=== PATIENT | male | born 2000 | race Two or more races ===

== ENCOUNTER 2025-06-24 20:55 | Emergency (ER) | payer OTHER, SELFPAY ==
[2025-06-24 21:02] VITALS: PULSE 130; O2SAT 100
--- NOTE | 2025-06-24 21:07 | ECG_ITS ---
Test Reason : TACHY Blood Pressure : */* mmHG Vent. Rate : 111 BPM Atrial Rate : 111 BPM P-R Int : 124 ms QRS Dur : 100 ms QT Int : 338 ms P-R-T Axes : 79 -16 49 degrees QTcB Int : 459 ms Sinus tachycardia Otherwise normal ECG No previous ECGs available Referred By: Generic ED Physician Electronically Signed By: LUKE JONES
[2025-06-24 21:09] VITALS: PULSE 106; RESP 16; O2SAT 99; BMI 30.3
--- OUTSIDE RECORDS SUMMARY | 2025-06-24 21:57 | XMS_ITS | Clinical Summary ---
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 30 each 06/01/2025 Active Active Problems Problem Noted Date Diagnosed Date Schizophrenia ([facility] V24, [facility] V28) Encounters Date Type Department Care Team Description 06/04/2025 12:16 PM EDT - 06/04/2025 4:10 PM EDT Emergency [facility] Emergency [address] [place] [phone] Froilan Vences MD Paresthesia (Primary Dx); Nonintractable headache, unspecified chronicity pattern, unspecified headache type Discharge Disposition: Home or Self Care 06/02/2025 8:49 PM EDT - 06/02/2025 9:12 PM EDT Emergency [facility] Emergency [address] [place] [phone] Cervicogenic headache (Primary Dx) Discharge Disposition: Home or Self Care 06/01/2025 5:04 PM EDT - 06/01/2025 5:22 PM EDT Emergency [facility] Emergency [address] [place] [phone] Broderick Hi MD Prehypertension (Primary Dx) Discharge Disposition: Home or Self Care from Last 3 Months Medical History Medical History Date Comments Diabetes mellitus ([facility], [facility] V28) Schizophrenia ([facility] V24, [facility] V28) Social History Tobacco Use Types Packs/Day Years Used Date Smoking Tobacco: Never Smokeless Tobacco: Never Tobacco Cessation:Counseling Given: Not Answered Sex and Gender Information Value Date Recorded Sex Assigned at Not on file Legal Sex Male 4:01 PM EDT Gender Identity Not on file Sexual Orientation Not on file Obstetrics History Last Filed Vital Signs Vital Sign Reading Time Taken Comments Blood Pressure 142/99 06/04/2025 4:08 PM EDT Pulse 112 06/04/2025 4:08 PM EDT Temperature 37 C (98.6 F) 06/04/2025 4:08 PM EDT Respiratory Rate 18 06/04/2025 4:08 PM EDT Oxygen Saturation 99% 06/04/2025 4:08 PM EDT Inhaled Oxygen Concentration - - Weight 104 kg (230 lb) 06/04/2025 12:17 PM EDT Height 180.3 cm (5' 11 ) 06/04/2025 12:17 PM EDT Body Mass Index 32.08 06/04/2025 12:17 PM EDT Plan of Treatment Health Maintenance Due Date Last Done Comments Diabetes: Annual Foot Exam 2011 Diabetes: Annual Retina Eye Exam 2011 HPV Vaccines (1 - Male 3-dos e series) 2016 Meningococcal B Vaccine (1 o f 2 - Standard) 2017 Hepatitis B Vaccines (1 of 3 - 19+ 3-dose series) 2020 COVID-19 Vaccine (4 - 2023-2 5 season) 2024 07/09/2022, 03/11/2021, 02/18/2021 Depression Screening 10/29/2024 Cholesterol Screening (Lipid Panel) 06/02/2025 Diabetes: Annual Urine Albumin-Creatinine Ratio (uACR) 06/02/2025 Diabetes: Blood Sugar Contro l Test (HGBA1C) 06/02/2025 08/11/2021 HIV Screening 06/02/2025 Hepatitis C Screening 06/02/2025 Social Influencers of Health Screening 06/02/2025 Influenza Vaccine (#1) 2025 , 09/22/2019 Diabetes: Annual GFR (Glomerular Filtration Rate) 06/04/2026 06/04/2025, 08/11/2021 DTaP,Tdap,and Td Vaccines (2 - Td or Tdap) 08/11/2031 08/11/2021 HIB Vaccines Aged Out No longer eligi ble based on patient's age to complete this topic Hepatitis A Vaccines Aged Out No long er eligible based on patient's age to complete this topic IPV Vaccines Aged Out No longer eligi ble based on patient's age to complete this topic MMR Vaccines Aged Out No longer eligi ble based on patient's age to complete this topic Meningococcal ACWY Vaccine Aged Out N o longer eligible based on patient's age to complete this topic Pneumococcal Vaccine: Pediatrics (0 to 5 Years) and At-Risk Patients (6 to 49 Years) Aged Out No longer eligible b ased on patient's age to complete this topic RSV Immunization Patients Under 20 months Aged Out No longer eligible b ased on patient's age to complete this topic Varicella Vaccines Aged Out No longer eligible based on patient's age to complete this topic Procedures Procedure Name Priority Date/Time Associated Diagnosis Comments ECG ANNOTATED 06/05/2025 CBC WITH AUTO DIFFERENTIAL STAT 06/04/2025 2:45 PM EDT BASIC METABOLIC PANEL STAT 06/04/2025 2:45 PM EDT MAGNESIUM STAT 06/04/2025 2:45 PM EDT CBC AND DIFFERENTIAL STAT 06/04/2025 2:45 PM EDT ECG 12-LEAD STAT 06/04/2025 2:[address] HEAD WO CONTRAST STAT 06/04/2025 2 :35 PM EDT from Last 3 Months Results * ECG-Annotated (06/05/2025) us Provider Onbase MD ECG ORDERABLES Final Result * (ABNORMAL) CBC auto differential (06/04/2025 2:45 PM EDT) WBC 13.6(H) 4.8 - 10.8 K/mcL LAB HEMETOLOGY METHOD 06/04/2025 3:06 PM [facility] RBC 5.50 4.50 - 5.50 M/mcL LAB HEMETOLOGY METHOD 06/04/2025 3:06 PM [facility] Hemoglobin 17.5 13.5 - 17.5 g/dL LAB HEMETOLOGY METHOD 06/04/2025 3:06 PM [facility] Hematocrit 50.3 42.0 - 54.0 % LAB HEMETOLOGY METHOD 06/04/2025 3:06 PM [facility] MCV 91.6 79.0 - 98.0 FL LAB HEMETOLOGY METHOD 06/04/2025 3:06 PM [facility] MCH 31.9 27.0 - 32.0 pcg LAB HEMETOLOGY METHOD 06/04/2025 3:06 PM [facility] MCHC 34.8 32.0 - 37.0 g/dL LAB HEMETOLOGY METHOD 06/04/2025 3:06 PM [facility] RDW 12.1 11.0 - 15.0 % LAB HEMETOLOGY METHOD 06/04/2025 3:06 PM [facility] Platelets 267 130 - 400 K/mcL LAB HEMETOLOGY METHOD 06/04/2025 3:06 PM [facility] MPV 11.3(H) 7.0 - 11.0 FL LAB HEMETOLOGY METHOD 06/04/2025 3:06 PM [facility] NRBC 0.0 <1.0 % LAB HEMETOLOGY METHOD 06/04/2025 3:06 PM [facility] NRBC Absolute 0.00 <0.10 K/mcL LAB HEMETOLOGY METHOD 06/04/2025 3:06 PM [facility] Neutrophils Relative 71.6 % LAB HEMETOLOGY METHOD 06/04/2025 3:06 PM [facility] Lymphocytes Relative 21.2 % LAB HEMETOLOGY METHOD 06/04/2025 3:06 PM [facility] Monocytes Relative 6.3 % LAB HEMETOLOGY METHOD 06/04/2025 3:06 PM [facility] Eosinophils Relative 0.1 % LAB HEMETOLOGY METHOD 06/04/2025 3:06 PM [facility] Basophils Relative 0.4 % LAB HEMETOLOGY METHOD 06/04/2025 3:06 PM [facility] Immature Granulocytes Relative 0.4 % LAB HEMETOLOGY METHOD 06/04/2025 3:06 PM [facility] Neutrophils Absolute 9.75(H) 1.50 - 7.00 K/mcL LAB HEMETOLOGY METHOD 06/04/2025 3:06 PM [facility] Lymphocytes Absolute 2.88 1.00 - 5.00 K/mcL LAB HEMETOLOGY METHOD 06/04/2025 3:06 PM [facility] Monocytes Absolute 0.85 0.20 - 1.00 K/mcL LAB HEMETOLOGY METHOD 06/04/2025 3:06 PM [facility] Eosinophils Absolute 0.01 0.00 - 0.50 K/mcL LAB HEMETOLOGY METHOD 06/04/2025 3:06 PM [facility] Basophils Absolute 0.06 0.00 - 0.20 K/mcL LAB HEMETOLOGY METHOD 06/04/2025 3:06 PM [facility] Immature Granulocytes Absolute 0.05(H) 0.00 - 0.03 K/mcL LAB HEMETOLOGY METHOD 06/04/2025 3:06 PM [facility] Blood Venous blood specimen / Unknown Venipuncture / Unknown 06/04/2025 2:45 PM EDT 06/04/2025 2:59 PM EDT Froilan Vences MD LAB BLOOD ORDERABLES Final Result Performing Organization Address [facility]/ZIP Co de Phone Number [facility] [address] [place] [address], [place] [phone] * Magnesium (06/04/2025 2:45 PM EDT) [facility] Magnesium 1.9 1.9 - 2.6 mg/dL LAB CHEMISTRY METHOD 06/04/2025 3:51 PM EDT [facility] Blood Venous blood specimen / Unknown Venipuncture / Unknown 06/04/2025 2:45 PM EDT 06/04/2025 2:59 PM EDT Froilan Vences MD LAB BLOOD ORDERABLES Final Result Performing Organization Address [facility]/ZIP Co de Phone Number [facility] [address] [place] [address], [place] [phone] * Basic metabolic panel (06/04/2025 2:45 PM EDT) [facility] Sodium 135 133 - 145 mmol/L LAB CHEMISTRY METHOD 06/04/2025 3:51 PM EDT [facility] Potassium 3.6 3.5 - 5.5 mmol/L LAB CHEMISTRY METHOD 06/04/2025 3:51 PM EDT [facility] Chloride 103 96 - 110 mmol/L LAB CHEMISTRY METHOD 06/04/2025 3:51 PM EDT [facility] CO2 27 21 - 32 mmol/L LAB CHEMISTRY METHOD 06/04/2025 3:51 PM EDT [facility] Anion Gap 5 3 - 11 LAB CHEMISTRY METHOD 06/04/2025 3:51 PM EDT [facility] Glucose 94 70 - 100 mg/dL LAB CHEMISTRY METHOD 06/04/2025 3:51 PM EDT [facility] BUN 10 5 - 25 mg/dL LAB CHEMISTRY METHOD 06/04/2025 3:51 PM EDT [facility] Creatinine 1.11 0.70 - 1.30 mg/dL LAB CHEMISTRY METHOD 06/04/2025 3:51 PM EDT [facility] eGFR 96 >=60 mL/min/1. 73m2 LAB CHEMISTRY METHOD 06/04/2025 3:51 PM EDT [facility] Comment:Calculation based on the Chronic Kidney Disease Epidemiology Collaboration (CKD-EPI) equation refit without adjustment for race. BUN/Creatinine Ratio 9.0 LAB CHEMISTRY METHOD 06/04/2025 3:51 PM EDT [facility] Calcium 9.7 8.5 - 10.5 mg/dL LAB CHEMISTRY METHOD 06/04/2025 3:51 PM EDT [facility] Blood Venous blood specimen / Unknown Venipuncture / Unknown 06/04/2025 2:45 PM EDT 06/04/2025 2:59 PM EDT Froilan Vences MD LAB BLOOD ORDERABLES Final Result [facility] [address] [place] [address], * ECG 12 lead (06/04/2025 2:41 PM EDT) Ventricular Rate ECG 112 BPM GEMUSE Atrial Rate 122 BPM GEMUSE P-R Interval 120 ms GEMUSE QRS Duration 96 ms GEMUSE Q-T Interval 332 ms GEMUSE QTc 453 ms GEMUSE P Wave Tichnor 79 degrees GEMUSE R Tichnor -73 degrees GEMUSE T Tichnor 34 degrees GEMUSE ECG Interpretation Sinus tachycardia Left anterior fascicular block Abnormal ECG No previous ECGs available Confirmed by Janay BRAVO JOHN ([id number]) on 06/04/2025 4:57:15 PM GEMUSE 06/04/2025 2:41 PM EDT 06/04/2025 4:57 PM EDT us Froilan Vences MD ECG ORDERABLES Final Resul t GEMUSE * CT Head wo Contrast (06/04/2025 2:35 PM EDT) Anatomical Region Laterality Modality Head and Neck Computed Tomogra phy 06/04/2025 2:42 PM EDT Impressions 06/04/2025 2:[address] head.. -------- FINAL REPORT -------- Dictated By: Amrit Gunter Dictated Date: 06/04/2025 14:42 ET Assigned Physician: Amrit Gunter Reviewed and Electronically Signed By: Amrit Gunter Signed Date: 06/04/2025 14:54 ET Workstation ID: [id number] Transcribed By: Self Edit Transcribed Date: 06/04/2025 14:52 ET Narrative 06/04/2025 2:54 PM EDT PROCEDURE: HEAD CT INDICATION: Transient ischemic attack (TIA) TECHNIQUE: CT of the head without intravenous contrast. Multiplanar reformats. The examination was performed utilizing dose reduction techniques. Total DLP 809 COMPARISON: No priors available. FINDINGS: No acute territorial infarct, mass effect, or intracranial hemorrhage. No significant white matter disease No hydrocephalus. Visualized paranasal sinuses are clear. Mastoid air cells are clear. No calvarial fracture. Deviated nasal septum. Procedure Note Amrit Gunter MD - 06/04/2025 PROCEDURE: HEAD CT INDICATION: Transient ischemic attack (TIA) TECHNIQUE: CT of the head without intravenous contrast. Multiplanarreformats. The examination was performed utilizing dose reductiontechniques. Total DLP 809 COMPARISON: No priors available. FINDINGS: No acute territorial infarct, mass effect, or intracranial hemorrhage. No significant white matter disease No hydrocephalus. Visualized paranasal sinuses are clear. Mastoid air cells are clear. No calvarial fracture. Deviated nasal septum. IMPRESSION: Negative CT head.. 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
--- NOTE | 2025-06-24 22:04 | ED_ITS ---
HPI - Anxiety General Chief Complaint: Anxiety Stated Complaint: heart palpations after drug use Time Seen by Provider: 06/24/25 21:57 Source: patient and EMS Mode of arrival: EMS Limitations: no limitations History of Present Illness ED Provider: DR. Siegel HPI narrative: 24-year-old male who brought in by ambulance for evaluation of anxiety after smoking weed. Patient used to be daily marijuana smoker then he quit for the last 3 months today patient smoked marijuana gained for the 1st time felt palpitation, and anxious. Patient in the emergency department keep saying ?I am fine and it is my anxiety ?patient is refusing blood workup, and checking his vital signs. Patient declined using any other recreational drugs. Currently no CP, no SOB. Related Data Allergies Allergy/AdvReac Type Severity Reaction Status Date / Time No Known Allergies Allergy Verified 06/24/25 21:13 Review of Systems Review of Systems: All other systems are reviewed and are negative Constitutional: Reports as per HPI and Reports no additional constitutional complaints Eyes: Reports as per HPI and Reports no additional eye complaints Reports system reviewed and no additional complaints, except as documented Cardiovascular: Reports as per HPI and Reports no additional cardiovascular complaints Respiratory: Reports as per HPI and Reports no additional respiratory complaints Gastrointestinal: Reports as per HPI and Reports no additional gastrointestinal complaints Genitourinary: Reports no additional female genitourinary complaints Musculoskeletal: Reports no additional musculoskeletal complaints Skin/Breast: Reports system reviewed and no additional complaints, except as docu Psychiatric: Reports no additional psychiatric complaints Endocrine: Reports no additional endocrine complaints Hematologic/Lymphatic: Reports no additional hematologic/lymphatic complaints Allergic/Immunologic: Reports no additional allergic/immunologic complaints Reports system reviewed and no additional complaints, except as documented and Reports Abnormal speech present [facility] Social History Social History Advance Directives: No Advance Directives Information Provided: No Do you have a plan to hurt others: No Plan Physical Exam Vital Signs: Vital Signs: Last Vital Signs Pulse 106 H 06/24/25 21:09 Resp 16 06/24/25 21:09 Pulse Ox 99 06/24/25 21:09 O2 Del Method Room Air 06/24/25 21:09 BMI result Body Mass Index 30.3 Vital signs have been reviewed and appear to be correct. Patient refusing blood pressure, Heart rate normal. Respiratory rate normal. Temperature normal. Oxygen saturation normal. Appearance: Anxious, Alert. Oriented X3. No acute distress. Head: Normal external exam. Normocephalic. Atraumatic. No Doss signs noted. No raccoon eyes noted Eyes: PERRLA. EOMI. Conjunctiva and sclera normal. Eyelids normal. ENT: TM's Normal. Pharynx normal. Uvula midline. Moist mucous membranes. No trismus noted. No drooling noted. No muffled voice noted. Neck: Normal inspection. Neck supple. FROM. No adenopathy. Thyroid Normal. No meningeal signs. No neck mass noted. CVS: Normal heart rate and rhythm. Heart sound normal. No murmurs noted. Pulses normal throughout. Respiratory: No respiratory distress. Painless inspiration. Breath sounds normal. No wheezes/rales/rhonchi noted. Chest nontender. No accessory muscle usage noted or decreased air movement noted. Abdomen: Soft and nontender. Bowel sounds normal in all 4 quadrants. No distention noted. No organomegaly noted. No visible injury noted. Back: No CVA tenderness. Full range of motion noted. Skin: Skin warm and dry. Normal skin color. Normal skin turgor. No rashes/lesions/lacerations noted. Extremities: No lower extremity edema. Extremities exhibit normal range of m otion. Extremities nontender. Neuro: Mental status: Normal attention, orientation, memory, and affect. Cranial nerves: Pupils are equal, round and reactive to light, EOMI, visual cherry are fall, face is symmetric, facial sensations are normal. Motor examination normal muscle tone, strength to 4 extremities. DTR are +2, planter's are flexor. Sensory exam; normal coordination, no ataxia, gait stable. Cerebellar exam: [id number] and [id number] is normal. Extrapyramidal system: No tremors, no rigidity with normal facial expressions. Pronator drift not present Course Reevaluation(s) Reevaluation #1: Patient feels better, less anxious, calm and redirectable, no complaints at the moment, waiting for his friend to give him ride home. Time: 23:15 Medical Decision Making Differential Diagnosis Differential Diagnoses: The differential diagnosis associated with the presentation includes (Anxiety, side-effect marijuana, arrhythmia, ACS.) Admission/Observation Consideration of admission/observation: Escalation of care including admission/observation considered Discharge Plan Discharge Clinical Impression: Acute anxiety, Cannabis use disorder Instructions: Cannabis Use Disorder (ED), Anxiety (ED) Additional Instructions: abstain from smoking marijuana. Print Language: Korean
--- NOTE | 2025-06-24 22:06 | MHC.EDTECH ---
The nurse went to do the patient bp and patient ripped the cuff off said it was tight. Nurse tried to educate patient on how the Dr. need his blood pressure due to patient saying he has high bp
[2025-06-24 23:16] VITALS: BP 132/72; PULSE 94; TEMP 37.1; O2SAT 98
[2025-06-25 01:28] VITALS: BP 132/72; PULSE 94; RESP 16; TEMP 37.1; O2SAT 98
== END 2025-06-25 01:31 | disposition home or self-care (01) ==
PROVIDERS: Emergency Provider Emergency Medicine
DX: F41.9 Anxiety disorder, unspecified (principal); F12.90 Cannabis use, unspecified, uncomplicated; R00.0 Tachycardia, unspecified
CPT/HCPCS: 93005; 99283; 99284

== ENCOUNTER → 2025-06-24 21:07 | Outpatient (BNV) | payer OTHER, SELFPAY | PROVIDERS: Emergency Provider Emergency Medicine; Visit Provider Internal Medicine | DX: R00.0 Tachycardia, unspecified (principal) | CPT/HCPCS: 93010 ==